=== PATIENT | male | born 1965 | race Caucasian/White ===

== ENCOUNTER 2022-08-27 05:49 | Day surgery (SDC) | payer OTHER ==
[~2022-08-27 05:49] MED LIST: AMLODIPINE BESY10 MG PO; AVAPRO75 MG PO
== END 2022-08-27 14:35 | disposition home or self-care (01) ==
LOC: CIR.AMB 05:49
PROVIDERS: ATTEND Specialist
DX: K42.9 Umbilical hernia without obstruction or gangrene (principal); Z20.822 Contact with and (suspected) exposure to COVID-19; I10 Essential (primary) hypertension; J45.909 Unspecified asthma, uncomplicated; Z86.16 Personal history of COVID-19